=== PATIENT | male | born 1990 | race Caucasian/White ===

== ENCOUNTER 2017-01-12 10:29 | Emergency (ER) | payer MEDICAID, OTHER ==
[~2017-01-12] VITALS: Ht 165.1 cm; Wt 81.5 kg
[2017-01-12 10:32] VITALS: Ht 165.1 cm; Wt 81.5 kg
[2017-01-12] MEDS ORDERED: ACYC800T57 PO (11:02)
[2017-01-12] MEDS ORDERED: PRED20TA PO (11:02)
[2017-01-12] MEDS ORDERED: IBUP-1542 PO (11:03)
[2017-01-12] MEDS ORDERED: TETR15DR12 OP (11:06)
--- NOTE | 2017-01-12 11:25 | ERD ---
ER Documentation Chief Complaint Date/Time DATE: 01/12/17 TIME: 11:14 Chief Complaint Complains of right sided facial numbness HPI This is a 26-year-old male presents to the ER with right-sided facial numbness that started last night. Patient states that this morning he was not able to close his right eye, and he noticed his smile was drooping. Patient denies any upper or lower extremity weakness. He denies any headaches. He does not have any past medical history of hypertension, strokes or other cerebrovascular accidents. Family history of early onset strokes. Patient has not had any fevers or chills. He has not had any trauma to the head. ROS 12 point review of systems was done, all negative except per HPI. Medications Home Meds Active Scripts Tetrahydrozoline Hcl/Peg's (Eye Moisturizing Relief Drp) 15 Ml Drops, 15 ML OP Q6 for 7 Days, BOTTLE Prov:JOEY AZUL 01/12/17 Ibuprofen* (Motrin*) 600 Mg Tab, 600 MG PO Q6, #30 TAB Prov:JOEY AZUL 01/12/17 Prednisone* (Prednisone*) 20 Mg Tab, 60 MG PO DAILY for 5 Days, TAB Prov:JOEY AZUL 01/12/17 Acyclovir* (Zovirax*) 800 Mg Tablet, 800 MG PO 5 TIMES DAILY for 7 Days, TAB Prov:JOEY AZUL 01/12/17 Allergies Allergies: Coded Allergies: No Known Allergy (Unverified , 01/12/17) PMhx/Soc Medical and Surgical Hx: pt denies Medical Hx, pt denies Surgical Hx Hx Alcohol Use: No Hx Substance Use: No Hx Tobacco Use: No Physical Exam Vitals Physical Exam GENERAL: The patient is well developed and appropriate for usual state of health , in no apparent distress. HEENT: Atraumatic. Conjunctivae are pink. Pupils equal, round, and reactive to light. Extraocular muscles are grossly intact. Bilateral tympanic membranes are clear with no evidence of erythema, bulging or perforation.. When he smiles though she has some drooping of the left side of his face, as well as some mild nasolabial fold flattening. CHEST: Clear to auscultation bilaterally. There are no rales, wheezes or rhonchi. HEART: Regular rate and rhythm. No murmurs, clicks, rubs or gallops. EXTREMITIES: muscle strength is equal bilaterally in the upper and lower extremities. No focal swelling or erythema. Full range of motion. Grossly neurovascularly intact. NEURO: Alert and oriented. Patient is unable to close his right eye, or lift his right eyebrow . Motor strength in all 4 extremities with 5/5 strength. Sensation grossly intact. Normal speech and gait. Negative Rhomberg. +2 DTRs. SKIN: There is no apparent rash or petechia. The skin is warm and dry. Procedures/MDM This is a 26-year-old male presents to the ER stating that the right side of his face is numb, patient's physical examination is consistent with Victoria's palsy. At this time suspicion for CVA is low, patient does not have any weakness of his upper or lower extremity and he is neurologically intact. Patient denies any trauma, a doubt subdural hematoma or subarachnoid hemorrhage. For meningitis or sepsis is low. Patient is afebrile and extremely well-appearing. Patient will be sent home with acyclovir, prednisone and wetting drops for his eye. He is to follow-up with his primary care doctor within 1-2 days return to ER sooner if symptoms worsen. My medical decision making shared with the patient he understands and agrees with plan. Departure Diagnosis: Primary Impression: Victoria's palsy Condition: Stable Patient Instructions: Victoria's Palsy Additional Instructions: Llame al doctor RAFAEL y ligia mili KEM PARA DENTRO DE 1-2 GASCA.Dgale a la secretaria que nosotros le instruimos hacer esta kem.Avise o llame si vickers condicin se empeora antes de la kem. Regresa aqui si peor o no mejor. JOEY AZUL Jan 12, 2017 11:25 JOEY AZUL Jan 12, 2017 11:25
== END 2017-01-12 11:22 | disposition home or self-care (01) ==
LOC: FTE 10:29
DX: G51.0 Bell's palsy (principal)
CPT/HCPCS: 99284